=== PATIENT | female | born 1990 | race Caucasian/White ===

== ENCOUNTER 2023-09-29 10:10 | Emergency (ER) | payer OTHER, SELFPAY ==
[2023-09-29 10:16] VITALS: BP 103/74; PULSE 89; RESP 16; TEMP 36.4; O2SAT 100
--- NOTE | 2023-09-29 11:03 | ED.URI ---
HPI - URI/Sore Throat General Chief Complaint: Upper Respiratory Infection Stated Complaint: Cough/Chest Congestion Time Seen by Provider: 09/29/23 10:53 Source: patient and RN notes reviewed Mode of arrival: ambulatory Limitations: no limitations History of Present Illness HPI Narrative: Patient presents today complaining of cough and nasal congestion x3 days that has worsened since last night. She also reports wheezing when she takes a deep breath. Denies sore throat, shortness of breath, fever, or any additional symptoms. She has been taking Robitussin, Zyrtec, and using an old rescue inhaler with some mild relief. No history of asthma or COPD. She is a nonsmoker. Both of her children were diagnosed with bronchitis within the past month. Related Data Home Medications Medication Instructions Recorded Confirmed phentermine 37.5 mg capsule 37.5 mg PO AC 09/29/23 09/29/23 Allergies Allergy/AdvReac Type Severity Reaction Status Date / Time No Known Allergies Allergy Unverified 02/26/16 17:16 Review of Systems Review of Systems: CONSTITUTIONAL: Denies body aches, fever, chills, or sweats. EYES: Denies visual changes, redness, or discharge. ENT: Denies rhinorrhea, sore throat, or otalgia.+ congestion CARDIOVASCULAR: Denies chest pain, palpitations, or edema. RESPIRATORY: + cough, wheezing GASTROINTESTINAL: Denies abdominal pain, nausea, vomiting, or diarrhea. GENITOURINARY: Denies dysuria or hematuria. SKIN: Denies rash, itching, or wounds. MUSCULOSKELETAL: Denies back pain, joint pain, or myalgia. NEUROLOGIC: Denies headache, numbness, tingling, or weakness. PSYCH: Denies depression or anxiety. PMFSH Comments At time of signature, I have reviewed and agree with nursing past medical, surgical, social and family history unless otherwise noted. Please see nursing chart for further information. There is no relevant family history pertinent to the presenting complaint Exam Narrative: GENERAL: Mildly ill appearing, well-nourished, and in no acute distress. HEAD: Normocephalic, atraumatic. EYES: EOMI. No redness or drainage. Conjunctivae normal. ENT: Mucous membranes pink and moist. Nares congested. No rhinorrhea. TMs normal bilaterally. Throat normal. Uvula midline. NECK: Normal AROM. Supple. No lymphadenopathy. CHEST: No respiratory distress. Inspiratory wheezing throughout. HEART: Regular rate and rhythm. No murmur appreciated. EXTREMITIES: Normal range of motion. No edema. SKIN: Warm, dry, no rash. Capillary refill normal. Normal skin turgor. NEURO: No focal deficits. Alert and oriented x3. Gait steady. PSYCH: Normal affect. No signs of depression or anxiety. Course Course Level of Care: Express Care Visit Vital Signs Vital signs: Vital Signs Temperature 97.5 F L 09/29/23 10:16 Pulse Rate 89 09/29/23 10:16 Respiratory Rate 16 09/29/23 10:16 Blood Pressure 103/74 09/29/23 10:16 Pulse Oximetry 100 09/29/23 10:16 Temperature 97.5 F L 09/29/23 10:16 Pulse Rate 89 09/29/23 10:16 Respiratory Rate 16 09/29/23 10:16 Blood Pressure 103/74 09/29/23 10:16 Pulse Oximetry 100 09/29/23 10:16 Reviewed MDM - URI/Sore Throat MDM Narrative Medical decision making narrative: Patient's exam and symptoms are consistent with bronchitis. Prescription for prednisone and an albuterol inhaler sent to pharmacy. Anticipatory guidance given. Differential Diagnosis Differential diagnosis: Likely upper respiratory infection, viral infection and bronchitis Critical Care Time Critical Care Time Critical Care Time: No Discharge Plan Discharge Clinical Impression: Bronchitis Upper respiratory infection Qualifiers: URI type: unspecified URI Qualified Code(s): J06.9 - Acute upper respiratory infection, unspecified Patient Disposition: Home, Self-Care Condition: Stable Instructions: Upper Respiratory Infection (DC), Acute Bronchitis (ED) Additional In
== END 2023-09-29 11:24 | disposition home or self-care (01) ==
PROVIDERS: Emergency Provider Nurse Practitioner; PCP Nurse Practitioner Family
DX: J40 Bronchitis, not specified as acute or chronic (principal); J06.9 Acute upper respiratory infection, unspecified; J45.909 Unspecified asthma, uncomplicated; M19.90 Unspecified osteoarthritis, unspecified site
CPT/HCPCS: 99213; G0463